=== PATIENT | male | born 1970 | race Caucasian/White ===

== ENCOUNTER 2017-05-06 13:41 | Observation (INO) | payer OTHER ==
[~2017-05-06] VITALS: Ht 172.7 cm; Wt 80.3 kg
[2017-05-06 15:18] LABS: HEMOGLOBIN 15.1 gm/dl (14.0-17.5); RED BLOOD COUNT 4.87 M/UL (4.20-5.50); WHITE BLOOD COUNT 6.6 K/UL (4.5-11.0)
[2017-05-06 15:42] LABS: BUN/CREATININE RATIO 16 (0-10)
[2017-05-06] MEDS ORDERED: EFFIENT10 MG PO (20:08)
[2017-05-06] MEDS ORDERED: ASPIR 8181 MG PO (20:09)
[2017-05-06] MEDS ORDERED: LISINOPRIL2.5 MG PO (20:09)
[2017-05-06] MEDS ORDERED: LIPITOR TAB 2020 MG PO (20:10)
[2017-05-06] MEDS ORDERED: LOPRESSOR 25 MG25 MG PO (20:12)
[2017-05-06] MEDS ORDERED: ALPRAZOLAM0.5 MG PO (20:18)
[2017-05-07] MEDS ORDERED: HABITROL 21 MG P1 EA TD (17:08)
[2017-05-07] MEDS ORDERED: PLAVIX 75 MG TA75 MG PO (17:09)
== END 2017-05-07 17:49 | disposition home or self-care (01) ==
LOC: ER1 13:41 → M/S 18:32 → ZEROF 18:32 → M/S 18:32
PROVIDERS: Emergency Medicine; ADMIT Hospitalist
DX: I25.119 Atherosclerotic heart disease of native coronary artery with unspecified angina pectoris (principal); R20.0 Anesthesia of skin; I25.2 Old myocardial infarction; I10 Essential (primary) hypertension; E78.5 Hyperlipidemia, unspecified; I45.6 Pre-excitation syndrome; R73.03 Prediabetes; M51.36 Other intervertebral disc degeneration, lumbar region; F41.9 Anxiety disorder, unspecified; F17.210 Nicotine dependence, cigarettes, uncomplicated; Z91.14 Patient's other noncompliance with medication regimen; Z95.5 Presence of coronary angioplasty implant and graft; Z79.82 Long term (current) use of aspirin; Z79.899 Other long term (current) drug therapy
CPT/HCPCS: 36415; 70450; 71010; 80053; 82550; 82553; 83874; 84484; 85025; 93005; 96372; 99285; G0378; J1650

== ENCOUNTER → 2021-10-14 | Outpatient (CLI) | payer OTHER ==
[~2021-10-14] MED LIST: ALPRAZOLAM0.5 MG PO; ASPIR 8181 MG PO; CLEOCIN HCL300 MG PO; EFFIENT10 MG PO; HABITROL 21 MG P1 EA TD; IBUPROFEN600 MG PO; LIPITOR TAB 2020 MG PO; LISINOPRIL2.5 MG PO; LOPRESSOR 25 MG25 MG PO; NORCO 5-325 TA1 EACH PO; PHENERGAN 25 MG25 M1 PO; PLAVIX 75 MG TA75 MG PO; ULTRAM50 MG PO; ZOFRAN ODT 4 MG4 MG PO
== END ==
LOC: KOH-I 14:39
DX: M54.50 Low back pain, unspecified (principal); M51.37 Other intervertebral disc degeneration, lumbosacral region
CPT/HCPCS: 72148